=== PATIENT | male | born 1935 ===

== ENCOUNTER 2018-01-23 17:15 | Emergency (ER) | payer MEDICARE ==
[2018-01-23 17:15] VITALS: BMI 28.3
[2018-01-23 17:25] VITALS: TEMP 97.9
[2018-01-23] MEDS ORDERED: Albuterol 0.083% Inhal Sol (2.5 mg/3 mL) UD INH ONE ×2 (17:56→20:22)
--- NOTE | 2018-01-23 18:02 | ED PDOC ---
HPI: SOB/CHF/COPD Time Seen by Provider: 01/23/18 17:20 Chief Complaint (Nursing): Shortness Of Breath Chief Complaint (Provider): shortness of breath History Per: Patient History/Exam Limitations: no limitations Onset/Duration Of Symptoms: Hrs (16:30) Current Symptoms Are (Timing): Still Present Associated Symptoms: Productive Cough. denies: Fever, Chills Additional Complaint(s): Renato Clemens is an 82 year old male, with a past medical history of HTN and CVA , who presents to the emergency department accompanied by nephew for evaluation of shortness of breath associated with a productive cough onset since 16:30 today. Nephew states he found patient c/o of shortness of breath which prompted ED visit. Per patient's request history obtained from daughter, Gema Clemens, over the phone who states patient smokes 2 or 3 cigars per day. Patient denies any fever, chills, or vomiting. No further medical complaints. PMD: Dr. Flo Sims Past Medical History Reviewed: Historical Data, Nursing Documentation, Vital Signs Vital Signs: Last Vital Signs Temp 97.9 F 01/23/18 21:34 Pulse 67 01/23/18 21:34 Resp 20 01/23/18 21:34 BP 117/61 01/23/18 21:34 Pulse Ox 95 01/23/18 21:35 - Medical History PMH: HTN, Hypercholesterolemia - Surgical History Surgical History: No Surg Hx - Family History Family History: States: Unknown Family Hx - Social History Current smoker - smoking cessation education provided: Yes (2-3 cigars per day) Alcohol: None Drugs: Denies - Home Medications Home Medications: Ambulatory Orders Medication Instructions Recorded Clopidogrel [Plavix] 75 mg PO DAILY 07/24/17 Folic Acid 1 mg PO DAILY 07/24/17 Losartan/Hydrochlorothiazide 1 tab PO DAILY 07/24/17 [Hyzaar 100-12.5 Tablet] Metoprolol Succinate XL [Toprol XL] 50 mg PO DAILY 07/24/17 Rosuvastatin Calcium [Crestor] 20 mg PO HS 07/24/17 Albuterol HFA [Ventolin HFA 90 1 - 2 puff IH Q4H PRN #1 bottle 01/23/18 mcg/actuation (8 g)] Aspirin [Ecotrin] 81 mg PO DAILY 01/23/18 Ergocalciferol (Vitamin D2) 50,000 unit PO FR 01/23/18 [Vitamin D2] - Allergies Allergies/Adverse Reactions: Allergies Allergy/AdvReac Type Severity Reaction Status Date / Time No Known Allergies Allergy Verified 01/23/18 17:22 Curb-65 Severity Score - CURB-65 Severity Score Confusion: No Bun >19mg/dl (>7mmol/L): No Respiratory Rate greater than/equal to 30: No Systolic BP <90 or Diastolic BP less than/equal 60mmHg: No Age >64: Yes Curb-65 Score: 1 Percentage 30-day mortality: 2.7% Wells Criteria for PE - Wells Criteria for Pulmonary Embolism Clinical Signs and Symptoms of DVT: No P.E is #1 Diagnosis, or Equally Likely: No Heart Rate >100: No Immobilization at least 3 days;Surgery previous 4 weeks: No Previous, objectively diagnosed PE or DVT: No Hemoptysis: No Malignancy w/treatment within 6 months, or palliative: No Total Score: 0 Review of Systems ROS Statement: Except As Marked, All Systems Reviewed And Found Negative Constitutional: Negative for: Fever, Chills Respiratory: Positive for: Cough (productive), Shortness of Breath Gastrointestinal: Negative for: Vomiting Physical Exam - Reviewed Nursing Documentation Reviewed: Yes Vital Signs Reviewed: Yes - Physical Exam Appears: Positive for: No Acute Distress Head Exam: Positive for: ATRAUMATIC, NORMAL INSPECTION, NORMOCEPHALIC Skin: Positive for: Normal Color, Warm, Dry Eye Exam: Positive for: Normal appearance, EOMI, PERRL ENT: Positive for: Normal ENT Inspection Neck: Positive for: Painless ROM, Supple Cardiovascular/Chest: Positive for: Regular Rate, Rhythm. Negative for: Murmur Respiratory: Positive for: Wheezing (slight). Negative for: Respiratory Distress Gastrointestinal/Abdominal: Positive for: Normal Exam, Soft. Negative for: Tenderness Back: Positive for: Normal Inspection Extremity: Positive for: Normal ROM (upper and lower extremities). Negative for : Pedal Edema, Deformity, Swelling Neurologic/Psych: Positive for: Alert, Oriented. Negative for: Motor/Sensory Deficits - Laboratory Results Result Diagrams: 01/23/18 18:34 01/23/18 18:34 - ECG O2 Sat by Pulse Oximetry: 95 (RA) Pulse Ox Interpretation: Normal Medical Decision Making Medical Decision Making: Time: 17:28 Initial Impression: cough, slight wheeze rule out pneumonia Initial Plan: --CMP --CBC w/ differential --Chest two views (PALAT) [RAD] --Albuterol 2.5 mg INH --Peak flow pre/post Tx --Reevaluation 20:30 -CXR is negative. Labs normal except for elevated sugar. -EKG: Sinus rhythm, rate @ 66 bpm. 21:30 -X-Ray read, its negative. Patient reports feeling better and is medically stable for discharge, wants to go home. Patient requires no further treatment in the ED at this time and was given Rx for albuterol. Patient was advised to follow up with PMD in 1-2 days. pt as well as his nephew at bedside aware and agreeable w plan.. Return if symptoms persist and worsen. ----- Scribe Attestation: Documented by John Swan, acting as a scribe for Melo Prater MD. Provider Scribe Attestation: All medical record entries made by the Scribe were at my direction and personally dictated by me. I have reviewed the chart and agree that the record accurately reflects my personal performance of the history, physical exam, medical decision making, and the department course for this patient. I have also personally directed, reviewed, and agree with the discharge instructions and disposition. Disposition - Clinical Impression Clinical Impression: Cough - Patient ED Disposition Is Patient to be Admitted: No Counseled Patient/Family Regarding: Studies Performed, Diagnosis, Need For Followup - Disposition Disposition: Routine/Home Disposition Time: 21:25 Condition: IMPROVED Additional Instructions: follow up with your primary doctor in 1-2 days return to the ED with any worsening or concerning symptoms Prescriptions: Albuterol HFA [Ventolin HFA 90 mcg/actuation (8 g)] 1 - 2 puff IH Q4H PRN #1 bottle PRN Reason: Wheezing Instructions: Cough in Adults Forms: [facility] (Filipino)
[2018-01-23 18:46] LABS: BASO % 0.3 % (0.0-2.0); EOS # 0.6 K/uL (0.0-0.7); EOS % 7.5 % (0.0-4.0); HEMOGLOBIN 14.9 g/dL (12.0-18.0); LYMPH # 1.9 K/uL (1.0-4.3); LYMPH % 22.7 % (20.0-40.0); MEAN CELL VOLUME 87.4 fl (80.0-94.0); MEAN CORPUSCULAR HEMOGLOBIN 29.1 pg (27.0-31.0); MEAN CORPUSCULAR HGB CONC 33.4 g/dL (33.0-37.0); MEAN PLATELET VOLUME 9.2 fl (7.2-11.7); MONO # 0.7 K/uL (0.0-0.8); MONO % 8.4 % (0.0-10.0); NEUT # 5.1 K/uL (1.8-7.0); NEUT % 61.1 % (50.0-75.0); RBC 5.13 Mil/uL (4.40-5.90); RED CELL DISTRIBUTION WIDTH 14.3 % (11.5-14.5); WHITE BLOOD COUNT 8.3 K/uL (4.8-10.8)
[2018-01-23 18:48] LABS: ALB/GLOB RATIO 1.4 (1.0-2.1); ALBUMIN 4.2 g/dL (3.5-5.0); CALCIUM 9.8 mg/dL (8.4-10.2)
[2018-01-23] MEDS ORDERED: Albuterol 0.083% Inhal Sol (2.5 mg/3 mL) UD ONE ×2 (18:53→20:41)
[2018-01-23 20:48] VITALS: O2SAT 95
[2018-01-23 21:35] VITALS: BP 117/61; PULSE 67; RESP 20
--- NOTE | 2018-01-24 09:00 | RAD ---
Date of service: 01/23/2018 HISTORY: sob COMPARISON: No prior. TECHNIQUE: Chest PA and lateral FINDINGS: LUNGS: No active pulmonary disease. PLEURA: No significant pleural effusion identified. No pneumothorax apparent. CARDIOVASCULAR: Normal. OSSEOUS STRUCTURES: No significant abnormalities. VISUALIZED UPPER ABDOMEN: Normal. OTHER FINDINGS: None. IMPRESSION: No acute cardiopulmonary disease appreciated.
== END 2018-01-23 21:36 | disposition home or self-care (01) ==
LOC: H.ER 17:15
DX: R05 Cough (principal); J44.9 Chronic obstructive pulmonary disease, unspecified; E78.00 Pure hypercholesterolemia, unspecified; I10 Essential (primary) hypertension; Z79.82 Long term (current) use of aspirin; F17.290 Nicotine dependence, other tobacco product, uncomplicated